=== PATIENT | male | born 1975 | race Caucasian/White ===

== ENCOUNTER 2022-12-21 05:12 | Day surgery (SDC) | payer BC ==
[2022-12-15 16:40] VITALS: BMI 25.7
[2022-12-21] MEDS ORDERED: MIDAZOLAM HCL 2 MG/2 ML SINGLE DOSE VIAL ONE (14:07)
[2022-12-21] MEDS ORDERED: PROPOFOL 20 ML ONE (14:07)
[2022-12-21] MEDS ORDERED: ceFAZolin SODIUM 1 GM VIAL ONE (14:08)
[2022-12-21] MEDS ORDERED: DEXAMETHASONE SOD PHOSPHATE 4 MG/1 ML VIAL ONE (14:08)
[2022-12-21] MEDS ORDERED: ONDANSETRON 4 MG/2 ML VIAL ONE (14:08)
[2022-12-21] MEDS ORDERED: LIDOCAINE HCL/PF 2% SDV 5ML VIAL ONE (14:08)
[2022-12-21] MEDS ORDERED: SODIUM CHLORIDE 0.9% P/F 10 ML VIAL IJ ONE (14:09)
[2022-12-21] MEDS ORDERED: KETOROLAC TROMETHAMINE 30 MG/1 ML VIAL ONE (14:09)
[2022-12-21] MEDS ORDERED: ceFAZolin SODIUM 1 GM VIAL IVPB ONE (14:15)
[2022-12-21] MEDS ORDERED: LIDOCAINE HCL 2% JELLY 11 ML TP ONE (14:24)
[2022-12-21] MEDS ORDERED: oxyCODONE HCL 5 MG TABLET PO PRN (14:38)
[2022-12-21] MEDS ORDERED: ONDANSETRON 4 MG/2 ML VIAL IVPUSH PRN (14:38)
[2022-12-21] MEDS ORDERED: LACTATED RINGERS SOLUTION 1,000 ML IV SCH (14:45)
[2022-12-21 16:25] VITALS: RESP 20; TEMP 97.8
[2022-12-21 17:13] VITALS: BP 130/78; PULSE 76
== END 2022-12-21 17:00 | disposition home or self-care (01) ==
LOC: JASU-SURG 05:12
PROVIDERS: ATTEND Urology
PROC: 0VT08ZZ Resection of Prostate, Via Natural or Artificial Opening Endoscopic (ICD-10-PCS; principal; 2022-12-21 14:00)
DX: N40.1 Benign prostatic hyperplasia with lower urinary tract symptoms (principal); N13.8 Other obstructive and reflux uropathy
CPT/HCPCS: 94760